=== PATIENT | female | born 1965 | race Hispanic/Latino ===

== ENCOUNTER 2018-07-15 08:37 | Emergency (ER) | payer SELFPAY ==
[2018-07-15 08:53] VITALS: TEMP 97
[2018-07-15 08:54] VITALS: BMI 23.0
[2018-07-15 09:02] VITALS: RESP 19; O2SAT 98
--- NOTE | 2018-07-15 09:05 | ED PDOC ---
History of Present Illness History of Present Illness: 53 years old female with history of gastritis presents to ER for evaluation of non productive cough and congestion associated with chest pain on inspiration and cough onset 1 week. Patient denies shortness of breath or fever. PMD: non provided HPI: Influenza Time Seen by Provider: 07/15/18 08:54 Chief Complaint: Flu-like Symptoms Chief Complaint (Provider): Flu-like Symptoms History Per: Patient Exam Limitations: no limitations Onset/Duration Of Symptoms: Days (x7) Symptoms include: cough (non productive), nasal congestion, chest pain (on inspiration and cough). denies: fever, difficulty breathing Past Medical History Reviewed: Historical Data, Nursing Documentation, Vital Signs Vital Signs: Last Vital Signs Temp 97 F L 07/15/18 08:58 Pulse 81 07/15/18 08:58 Resp 19 07/15/18 08:58 BP 130/87 07/15/18 08:58 Pulse Ox 98 07/15/18 08:58 - Medical History PMH: Gastritis - Surgical History Surgical History: No Surg Hx - Family History Family History: States: Unknown Family Hx - Social History Current smoker - smoking cessation education provided: No Alcohol: Social Drugs: Denies - Home Medications Home Medications: Ambulatory Orders Medication Instructions Recorded Albuterol HFA [Ventolin HFA 90 2 puff IH Q4H #1 puff 07/15/18 mcg/actuation (8 g)] Azithromycin [Zithromax] 250 mg PO DAILY #6 tab 07/15/18 Benzonatate [Tessalon Perle] 100 mg PO Q8 #15 capsule 07/15/18 - Allergies Allergies/Adverse Reactions: Allergies Allergy/AdvReac Type Severity Reaction Status Date / Time Unobtainable Allergy Verified 07/15/18 08:58 Review of Systems ROS Statement: Except As Marked, All Systems Reviewed And Found Negative Constitutional: Negative for: Fever ENT: Positive for: Nose Congestion Cardiovascular: Positive for: Chest Pain (on inspiration and cough) Respiratory: Positive for: Cough (non productive). Negative for: Shortness of Breath Physical Exam - Reviewed Nursing Documentation Reviewed: Yes Vital Signs Reviewed: Yes - Physical Exam Appears: Positive for: Non-toxic, No Acute Distress Head Exam: Positive for: ATRAUMATIC, NORMOCEPHALIC Skin: Positive for: Normal Color, Warm, Dry Cardiovascular/Chest: Positive for: Regular Rate, Rhythm. Negative for: Murmur Respiratory: Positive for: Rhonchi (scattered). Negative for: Wheezing, Respiratory Distress Extremity: Positive for: Normal ROM. Negative for: Tenderness, Swelling Neurologic/Psych: Positive for: Alert, Oriented (x3) Medical Decision Making Medical Decision Making: Time: 901 Initial plan: --Chest x-ray --Urine dipstick ----- Scribe Attestation: Documented by Tamela Connell, acting as a scribe for Adam Amador MD. Provider Scribe Attestation: All medical record entries made by the Scribe were at my direction and personally dictated by me. I have reviewed the chart and agree that the record accurately reflects my personal performance of the history, physical exam, medical decision making, and the department course for this patient. I have also personally directed, reviewed, and agree with the discharge instructions and disposition. - ECG O2 Sat by Pulse Oximetry: 98 (RA) Pulse Ox Interpretation: Normal Disposition - Clinical Impression Clinical Impression: Bronchitis - Patient ED Disposition Is Patient to be Admitted: No Counseled Patient/Family Regarding: Studies Performed, Diagnosis, Need For Followup, Rx Given - Disposition Referrals: [facility] [Outside] Disposition: Routine/Home Disposition Time: 09:20 Condition: FAIR Prescriptions: Albuterol HFA [Ventolin HFA 90 mcg/actuation (8 g)] 2 puff IH Q4H #1 puff Azithromycin [Zithromax] 250 mg PO DAILY #6 tab Benzonatate [Tessalon Perle] 100 mg PO Q8 #15 capsule Instructions: Acute Bronchitis Forms: [facility] ([place]), [facility] ED School/Work Excuse
[2018-07-15 09:29] VITALS: BP 128/76; PULSE 78
--- NOTE | 2018-07-15 12:00 | RAD ---
Date of service: 07/15/2018 HISTORY: cough COMPARISON: No prior. TECHNIQUE: Chest PA and lateral FINDINGS: LUNGS: No active pulmonary disease. PLEURA: No significant pleural effusion identified. No pneumothorax apparent. CARDIOVASCULAR: No aortic atherosclerotic calcification present. Normal cardiac size. No pulmonary vascular congestion. OSSEOUS STRUCTURES: No significant abnormalities. VISUALIZED UPPER ABDOMEN: Normal. OTHER FINDINGS: None. IMPRESSION: No active disease.
== END 2018-07-15 09:35 | disposition home or self-care (01) ==
LOC: H.ER 08:37
DX: J40 Bronchitis, not specified as acute or chronic (principal)